=== PATIENT | male | born 1945 | race Caucasian/White ===

== ENCOUNTER → 2019-05-29 12:43 | Outpatient (BNVA) | payer OTHER, SELFPAY | PROVIDERS: Family Provider Family Medicine; PCP Family Medicine; Visit Provider Nurse Practitioner | DX: M54.2 Cervicalgia (principal); Z79.891 Long term (current) use of opiate analgesic | CPT/HCPCS: 99213 ==

== ENCOUNTER → 2019-09-25 12:49 | Outpatient (BNVA) | payer OTHER, SELFPAY | PROVIDERS: Family Provider Family Medicine; PCP Family Medicine; Visit Provider Anesthesiology | DX: M54.2 Cervicalgia (principal); Z95.810 Presence of automatic (implantable) cardiac defibrillator; Z79.891 Long term (current) use of opiate analgesic | CPT/HCPCS: 99213; 99214 ==

== ENCOUNTER → 2019-12-24 13:53 | Outpatient (BNVA) | payer OTHER, SELFPAY | PROVIDERS: Family Provider Family Medicine; PCP Family Medicine; Visit Provider Family Medicine | DX: Z11.59 Encounter for screening for other viral diseases (principal) | CPT/HCPCS: 87635 ==

== ENCOUNTER → 2020-01-13 10:08 | Outpatient (BNVA) | payer OTHER, SELFPAY | PROVIDERS: Family Provider Family Medicine; PCP Family Medicine; Visit Provider Anesthesiology | DX: M54.2 Cervicalgia (principal); M54.9 Dorsalgia, unspecified; Z95.810 Presence of automatic (implantable) cardiac defibrillator; Z79.891 Long term (current) use of opiate analgesic | CPT/HCPCS: 99213; 99214 ==

== ENCOUNTER → 2020-07-14 11:51 | Outpatient (BNVA) | payer OTHER, SELFPAY | PROVIDERS: Family Provider Family Medicine; PCP Family Medicine; Visit Provider Surgery | DX: Z20.822 Contact with and (suspected) exposure to COVID-19 (principal); Z85.038 Personal history of other malignant neoplasm of large intestine | CPT/HCPCS: 87635 ==

== ENCOUNTER 2020-07-20 08:07 | Day surgery (SDC) | payer OTHER, SELFPAY ==
[2020-07-18 09:37] VITALS: BMI 34.7
--- NOTE | 2020-07-20 08:29 | ANES.PREANE2 ---
Pre-Anesthetic Assessment Pre-Anesthetic Assessment: Height/Weight: Height 1.7 m Weight 100.698 kg Preop Diagnosis: Hx colon cancer Proposed Procedure: Operation Date: 07/20/20 10:00 Proposed Procedures p Colonoscopy 64928 z85.038(Not Applicable) - Ean Johnson MD Familial anesthetic complications: None Was Beta Beau taken within 24 hours: Yes Was Clonidine taken within 24 hours: N/A Last intake: > 8 hrs Social: Social History: No alcohol and No tobacco Exam: Pre-Anes Outpt Exam: alert, oriented x 3, clear to auscultation bilaterally and regular rate & rhythm Airway: Cervical ROM: WNL MP: 3 Dentition: False and Partials CV/HEM: CV/HEM: HTN and [place] Comments: Pacer/ICD in place - states it paces him. he is unable able to achieve > 4 METS, plays golf Metabolic: Metabolic: DM Anesthetic Plan: ASA status: 4 Anesthesia: MAC Risk of > 500 ml blood loss (7ml/kg in children): No PFSH Anesthesia PFSH: Medical History Encounter for long-term opiate analgesic use Neck pain Opioid contract exists Surgical History History of colon resection 6 INCHES REMOVED DUE TO CANCER Hx of Achilles tendon repair LEFT Family History Sister Cancer LEUKEMIA Father Heart disease Social History Smoking and tobacco status: former smoker Alcohol intake: current Alcohol intake frequency: holidays/special occasions only History of recent travel: No Data Anesthesia Cardiac Studies: No Data to Display
--- NOTE | 2020-07-20 08:53 | W.PM.OPSFHP ---
Same Day Surgery H&P Indication for Procedure/HPI DATE OF PROCEDURE: July 20, 2020 CHIEF COMPLAINT/INDICATIONFOR SURGICAL PROCEDURE: She of colon polyp PREOP DIAGNOSIS: History of colon cancer PLANNED PROCEDRUE: Operation Date: 07/20/20 10:00 Proposed Procedures p Colonoscopy 12463 z85.038(Not Applicable) - Ean Johnson MD This is a pleasant 75 years old gentleman gives history of 6 inches of partial colectomy that was done in [facility] about 6 years ago and patient reports that he had history of colon cancer but it is all taken out and he did not require further therapies like chemotherapy. Patient is referred to me for surveillance colonoscopy as he used to have 1 every 3 years per his description and he denies history of bleeding per rectum. No evidence of nonintentional weight loss. Unfortunately no available reports from outside facility about the actual procedure being done to the patient. Interim history 07/20/2020 Patient comes today for surveillance colonoscopy Medications/Allergies* Home Medications Medication Instructions Recorded Confirmed Type VITAMIN D3 25 mg PO BID 05/29/19 07/18/20 History aspirin 81 mg chewable tablet 81 mg PO DAILY 05/29/19 07/18/20 History atorvastatin 10 mg tablet 10 mg PO DAILY 05/29/19 07/18/20 History carvedilol 25 mg tablet 12.5 mg PO BID tab 05/29/19 07/18/20 History furosemide 20 mg tablet 60 mg PO DAILY tab 05/29/19 07/18/20 History gabapentin 300 mg capsule 900 mg PO TID cap 05/29/19 07/18/20 History glipizide 5 mg tablet 5 mg PO BID 05/29/19 07/18/20 History lisinopril 20 mg tablet 20 mg PO DAILY tab 05/29/19 07/18/20 History nitroglycerin 2.5 mg 2.5 mg PO BID 05/29/19 07/18/20 History capsule,extended release pentoxifylline 400 mg 400 mg PO BID 05/29/19 07/18/20 History tablet,extended release potassium chloride 20 mEq 20 meq PO DAILY 05/29/19 07/18/20 History tablet,extended release insulin glargine [Lantus U-100 58 unit SUBCUT BID 07/18/20 07/18/20 History Insulin] omega-3 fatty acids [Fish Oil] 1,500 mg PO DAILY 07/18/20 07/18/20 History Allergies/Adverse Reactions Allergy/AdvReac Type Severity Reaction Status Date / Time Iodinated Contrast Media Allergy RASH Verified 07/20/20 08:57 Pertinent History/Comorbid Conditions* Medical History (Updated 06/06/20 @ 16:02 by Ean Johnson MD) Encounter for long-term opiate analgesic use Neck pain Opioid contract exists Surgical History (Updated 05/29/19 @ 13:13 by SHIRLENE Hidalgo) History of colon resection 6 INCHES REMOVED DUE TO CANCER Hx of Achilles tendon repair LEFT Family History (Updated 05/29/19 @ 12:55 by RADHA Lerma) Heart disease Father Cancer Sister LEUKEMIA Social History Smoking and tobacco status: former smoker Alcohol intake: current Alcohol intake frequency: holidays/special occasions only History of recent travel: No Pertinent Exam Findings alert, clear to auscultation bilaterally, regular rate & rhythm and procedure specific exam findings (Lower midline scar otherwise nontender nondistended soft, obese) Recommendations Surgery/Procedure today (Colonoscopy with possible biopsy) Other Plans: Plan of care; After thorough history and physical examination and reviewing the chart, plan to perform surveillance colonoscopy. I discussed with the patient in details the risks,benefits,alternatives and indications.The risk of aspiration, bleeding, soft tissue injury, perforation of the colon and other potential concomitant complications were explained to the patient in details,also the potential need for Laproscoy/Laparotomy to repair any related complications including but not limited to colectomy and or Closotomy.The patient understood this well and did agree to proceed. Rationale was carefully and clearly discussed with the patient.Appropriate informed consent have been reviewed and signed All questions have been answered and all concerns have been addressed to patient's satisfaction. Verbal and written Instructions were given to the patient for colonoscopy prep Coding Level of Care Code Acute Molecular Biology Professor for Victorina Vital
[2020-07-20 09:03] VITALS: BP 142/57; PULSE 58; RESP 16; TEMP 36.6; O2SAT 99
[2020-07-20] MEDS: sodium chloride 0.9% 1,000 ML 30 ML IV (09:22)
[2020-07-20 09:31] LABS: Glucose Point of Care 102 mg/dL (70-110)
--- NOTE | 2020-07-20 10:35 | ANE.PACU2 ---
Inpatient post-anesthesia follow up: Airway intact: Yes Vital signs: Temperature 97.9 F Pulse Rate 58 Respiratory Rate 16 Blood Pressure 142/57 Pulse Oximetry 99 Oxygen Delivery Me thod Room Air Oxygen Flow Rate Fraction of Inspir ed Oxygen Hydration adequate: Yes Nausea and vomiting: No Pain level: 1 Mental status: Baseline
[2020-07-20 10:41] VITALS: BP 106/70; PULSE 71; RESP 18; TEMP 36.1; O2SAT 98
[2020-07-20 10:50] VITALS: BP 134/76; PULSE 57; RESP 18; O2SAT 97
--- NOTE | 2020-07-20 11:06 | PC.NURSE ---
Dr Johnson requested nursing to provide patient with hat and strainer to attempt to retrieve polyp. Pt was upset about Dr Johnson telling the patient he could not appreciate the anastomosis from previous surgery. Pt stated he would not be using the strainer and he would just forget about it. Items with placed in OZH bag and left unit with patient.
== END 2020-07-20 11:03 | disposition home or self-care (01) ==
PROVIDERS: PCP Family Medicine; Visit Provider Surgery
PROC: 0DJD8ZZ Inspection of Lower Intestinal Tract, Via Natural or Artificial Opening Endoscopic (ICD-10-PCS; CPT 45378; principal; 2020-07-20 10:00)
DX: Z12.11 Encounter for screening for malignant neoplasm of colon (principal); Z85.038 Personal history of other malignant neoplasm of large intestine; Z86.010 Personal history of colon polyps; Z87.891 Personal history of nicotine dependence; Z90.49 Acquired absence of other specified parts of digestive tract; D12.4 Benign neoplasm of descending colon; I10 Essential (primary) hypertension; I25.2 Old myocardial infarction; E11.9 Type 2 diabetes mellitus without complications
CPT/HCPCS: 36416; 45385; 82962; 88305; 96360; J2704; J7030

== ENCOUNTER → 2020-07-27 13:51 | Outpatient (BNVA) | payer OTHER, SELFPAY | PROVIDERS: PCP Family Medicine; Visit Provider Anesthesiology | DX: G89.29 Other chronic pain (principal); M54.9 Dorsalgia, unspecified; M54.2 Cervicalgia; Z79.891 Long term (current) use of opiate analgesic | CPT/HCPCS: 99214 ==

== ENCOUNTER → 2020-10-20 08:45 | Outpatient (BNVA) | payer OTHER, SELFPAY | PROVIDERS: PCP Family Medicine; Visit Provider Nurse Practitioner | DX: G89.29 Other chronic pain (principal); M54.2 Cervicalgia; M54.5 Low back pain; Z79.891 Long term (current) use of opiate analgesic; Z87.891 Personal history of nicotine dependence | CPT/HCPCS: 99212; 99213 ==

== ENCOUNTER 2020-12-13 08:03 | Outpatient (CLI) | payer OTHER, SELFPAY ==
[2020-12-13 08:44] VITALS: BMI 35.2
--- NOTE | 2020-12-13 08:59 | ECG_ITS ---
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 Interpretive Statements NAME OF STUDY: LEXISCAN SESTAMIBI STRESS TEST INDICATION: Chest pain, congestive heart failure PROCEDURE: At the baseline, the blood pressure was 157/76 mmHg, oxygen saturation 96% 157/76 mmHg, oxygen saturation 96% with a heart rate of 50 bpm. The electrocardiogram showed sinus bradycardia, limb lead reversal, extreme left axis deviation. Intraventricular conduction delay. The Lexiscan was infused over a period of 20 seconds. A total of 0.4 milligrams of Lexiscan was infused. The stress phase was continued for a total of 5 minutes. Heart rate at the end of the stress phase was 60 bpm, oxygen saturation 97% with a blood pressure of 133/69 mmHg. The EKG at the peak infusion revealed no significant ST-T wave changes. Isolated PVC noted during infusion. Sestamibi was injected 20 seconds after the Lexiscan infusion. Blood pressure at the end of the recovery phase was 136/68 mmHg, oxygen saturation 96% with a heart rate of 56 beats per minute. CONCLUSION: 1. Nondiagnostic EKG with LexiScan infusion given baseline intraventricular conduction delay (known left bundle branch block, lead reversal on stress EKG). 2. No LexiScan induced chest pain or cardiac arrhythmia. 3. Normal blood pressure and heart rate response. 4. Sestamibi/sestamibi perfusion scan pending; see separate report. Electronically Signed On 12-14-2020 17:15:30 CDT by Yolanda Alaniz M.D. [id number]
--- NOTE | 2020-12-13 09:00 | NMCV_ITS ---
NM eufemia perf SPECT r/s* [id number] Andre Olivas Age: 75 Gender: M : 1945 Exam Date: 12/13/2020 09:30 Ordering Phys: Yolanda Alaniz MD ([email or web address]) Technologist: PATRICIA Finn Exam Location: [facility] Indications: SHORTNESS OF BREATH, LBBB STRESS TEST Please see separate [facility] for full findings IMAGE PROTOCOL Rest/Stress 1 Lexiscan Day Radiopharmaceutical Dose (mCi) Administration Site Administered by Rest: Tc-99m 10.6 IV PATRICIA Finn Sestamibi Stress:Tc-99m 32.9 IV PATRICIA Finn Sestamibi Rest: 13-Dec-2020 60 Discovery 630 Stress: 13-Dec-2020 30 Discovery 630 0.4mg Lexiscan. Images obtained in supine and prone position. SPECT RESULTS Technical Quality: Excellent Raw Data Analysis: Normal Image Corrections: No attenuation or motion correction applied Summed Stress Score: 6 Summed Rest Score: 9 Summed Difference Score: 2 PERFUSION FINDINGS Medium sized perfusion abnormality of moderate severity of basal to mid inferolateral, mid anterolateral, apical lateral and apical inferior wall on rest images with subtle reversibility in basal anterolateral wall on supine stress images. There is somewhat improved tracer uptake in the lateral wall on prone stress images. FUNCTIONAL RESULTS (calculated via Gated SPECT) Stress Image LV EF (%): 54 Stress EDV (mL):140 TID: 0.83 Stress ESV (mL):65 FUNCTIONAL FINDINGS: The left ventricle is normal in size. Transient Ischemia Dilatation of 0.83. There is normal left ventricular systolic function. The left ventricular ejection fraction is normal with a value of 54%. There is normal left ventricular wall thickening. Abnormal septal motion. IMPRESSIONS 1. Medium sized perfusion abnormality of moderate severity of basal to mid inferolateral, mid anterolateral, apical lateral and apical inferior moran with subtle reversibility in basal anterolateral wall. 2. This may represent old myocardial infarction in circumflex and LAD artery territory with minimal angely-infarct ischemia or attenuation artifact (improved tracer uptake on prone images). 3. Overall left ventricular systolic function is normal without regional wall motion abnormalities. 4. No significant coronary ischemia based on the study. Yolanda Alaniz MD (Electronically Signed) Final Date: 15 December 2020 16:57 S
[2020-12-13] MEDS: regadenoson 0.4 Mg/5 ml Syringe IVP (10:09)
[2020-12-13 10:21] VITALS: BP 136/68; PULSE 58
== END 2020-12-13 08:04 | disposition home or self-care (01) ==
PROVIDERS: PCP Family Medicine; Visit Provider Internal Medicine Cardiovascular Disease
DX: R07.9 Chest pain, unspecified (principal); I50.9 Heart failure, unspecified; R06.02 Shortness of breath; I44.7 Left bundle-branch block, unspecified
CPT/HCPCS: 78452; 93017; A9500; J2785

== ENCOUNTER → 2021-01-27 08:29 | Outpatient (BNVA) | payer OTHER, SELFPAY | PROVIDERS: PCP Family Medicine; Visit Provider Anesthesiology | DX: G89.29 Other chronic pain (principal); M54.50 Low back pain, unspecified; M54.2 Cervicalgia; Z79.891 Long term (current) use of opiate analgesic; Z79.899 Other long term (current) drug therapy; Z87.891 Personal history of nicotine dependence | CPT/HCPCS: 99214 ==

== ENCOUNTER → 2021-04-21 10:43 | Outpatient (BNVA) | payer OTHER, SELFPAY | PROVIDERS: PCP Family Medicine; Visit Provider Anesthesiology | DX: G89.29 Other chronic pain (principal); M54.2 Cervicalgia; M54.50 Low back pain, unspecified; M19.90 Unspecified osteoarthritis, unspecified site; Z79.891 Long term (current) use of opiate analgesic | CPT/HCPCS: 99214 ==

== ENCOUNTER → 2021-05-26 10:38 | Outpatient (BNVA) | payer OTHER, SELFPAY | PROVIDERS: PCP Family Medicine; Visit Provider Internal Medicine Cardiovascular Disease | DX: Z95.0 Presence of cardiac pacemaker (principal) ==

== ENCOUNTER → 2021-08-25 10:30 | Outpatient (BNVA) | payer OTHER, SELFPAY | PROVIDERS: PCP Family Medicine; Visit Provider Internal Medicine Cardiovascular Disease | DX: Z45.02 Encounter for adjustment and management of automatic implantable cardiac defibrillator (principal) | CPT/HCPCS: 93284 ==

== ENCOUNTER → 2021-11-24 10:41 | Outpatient (BNVA) | payer OTHER, SELFPAY | PROVIDERS: PCP Family Medicine; Visit Provider Internal Medicine Cardiovascular Disease | DX: I11.0 Hypertensive heart disease with heart failure (principal); I50.42 Chronic combined systolic (congestive) and diastolic (congestive) heart failure; I25.10 Atherosclerotic heart disease of native coronary artery without angina pectoris; Z95.810 Presence of automatic (implantable) cardiac defibrillator; I73.9 Peripheral vascular disease, unspecified; Z87.891 Personal history of nicotine dependence | CPT/HCPCS: 93284; 99214 ==

== ENCOUNTER → 2022-03-16 09:53 | Outpatient (BNVA) | payer OTHER, SELFPAY | PROVIDERS: PCP Family Medicine; Visit Provider Internal Medicine Cardiovascular Disease | DX: Z45.02 Encounter for adjustment and management of automatic implantable cardiac defibrillator (principal) | CPT/HCPCS: 93284 ==

== ENCOUNTER → 2022-04-25 13:51 | Outpatient (BNVA) | payer OTHER, SELFPAY | PROVIDERS: PCP Family Medicine; Visit Provider Internal Medicine Cardiovascular Disease | DX: I11.0 Hypertensive heart disease with heart failure (principal); I50.42 Chronic combined systolic (congestive) and diastolic (congestive) heart failure; I25.10 Atherosclerotic heart disease of native coronary artery without angina pectoris; Z95.810 Presence of automatic (implantable) cardiac defibrillator; E78.5 Hyperlipidemia, unspecified; E11.9 Type 2 diabetes mellitus without complications; Z79.4 Long term (current) use of insulin; I73.9 Peripheral vascular disease, unspecified; Z87.891 Personal history of nicotine dependence | CPT/HCPCS: 99214; Q3014 ==

== ENCOUNTER → 2022-05-10 08:44 | Outpatient (BNVA) | payer OTHER, SELFPAY | PROVIDERS: PCP Family Medicine; Visit Provider Thoracic Surgery (Cardiothoracic Vascular Surgery) | DX: I65.21 Occlusion and stenosis of right carotid artery (principal); Z87.891 Personal history of nicotine dependence; I11.0 Hypertensive heart disease with heart failure; I50.9 Heart failure, unspecified; Z79.82 Long term (current) use of aspirin | CPT/HCPCS: 99203 ==

== ENCOUNTER → 2022-05-21 11:26 | Outpatient (BNVA) | payer OTHER, SELFPAY | PROVIDERS: PCP Family Medicine; Visit Provider Podiatrist Foot & Ankle Surgery | DX: I73.9 Peripheral vascular disease, unspecified (principal); B35.1 Tinea unguium; G62.9 Polyneuropathy, unspecified; E11.21 Type 2 diabetes mellitus with diabetic nephropathy; Z79.4 Long term (current) use of insulin | CPT/HCPCS: 11721; 99204 ==

== ENCOUNTER 2022-06-28 09:53 | Outpatient (CLI) | payer OTHER, SELFPAY ==
--- NOTE | 2022-06-28 10:00 | USCV_ITS ---
Andre Olivas Age: 77 Gender: M : 1945 Exam Date: 06/28/2022 10:19 Ordering Phys: René Spear MD (Andy) ([email or web address][place] [place] Technologist: RICARDO Exam Location: [facility] [place] Indication: KNOWN RIGHT ICA STENOSIS Risk Factors: Previous Vascular Surgery: Right Brachial BP: / Left Brachial BP: / Right Left Velocity (cm/s) Spectral Plaque Velocity (cm/s) Spectral Plaque Syst/Diast Broadening Syst/Diast Broadening 90.50/ 14.60 Prox CCA 121.70/ 23.30 100.30/19.80 Mid CCA 106.00/ 23.10 84.90/ 22.10 Distal CCA 99.10 / 25.60 475.40/167.80 Prox ICA 70.00 / 22.70 116.90/28.80 Mid ICA 73.30 / 30.90 41.30/ 17.20 Distal ICA 73.00 / 25.00 136.70 ECA 111.70 4.74 ICA/CCA 0.60 Antegrade Vertebral Antegrade 32.20/ 9.90 cm/s 36.50/ 12.40 cm/s Tri Subclavian Tri 97.00 149.0 0 FINDINGS Comparison: none available. Severe obstructive lesions noted in the right internal carotid artery with marked elevation of systolic and diastolic velociity. Mixed plaque in the right ICA. Antegrade vertebral arteries. CONCLUSIONS Right ICA stenosis 70-99%. Left ICA stenosis < 50%. Dr. Chelo Sabillon DO (Electronically Signed) Final Date: 28 June 2022 12:37 S
== END 2022-06-28 09:54 | disposition home or self-care (01) ==
PROVIDERS: PCP Family Medicine; Visit Provider Thoracic Surgery (Cardiothoracic Vascular Surgery)
DX: I65.23 Occlusion and stenosis of bilateral carotid arteries (principal)
CPT/HCPCS: 93880

== ENCOUNTER 2022-08-02 13:47 | Outpatient (CLI) | payer OTHER, SELFPAY ==
--- NOTE | 2022-08-02 14:30 | CT_ITS ---
WS: [id number] CT NECK WITHOUT CONTRAST HISTORY: History of carotid stenosis. Allergy to IV contrast. Evaluate extent of calcified plaque in the carotid arteries. TECHNIQUE: Contiguous 2 mm axial images are performed through the neck without intravenous contrast. Sagittal and coronal reformats are also submitted. All CT scans at [facility] use at least on e of these dose optimization techniques: automated exposure control; mA and/or kV adjustment per yuan ent size (includes targeted exams where dose is matched to clinical indication); or iterative reconst ruction. CONTRAST: CONTRAST: None DLP: 310.45 mGy.cm COMPARISON: Carotid ultrasound 06/28/2022 Examination performed to evaluate the extent of calcified plaque in the carotid arteries. RIGHT carotid artery: Mildly tortuous proximal common carotid artery. Calcified plaque is focal to th e bifurcation and this corresponds to the ultrasound findings also. Plaque extends over a length of 1 2 mm in the proximal RIGHT ICA. The soft plaque seen by carotid ultrasound is not evident by this exa mination. No significant amount of plaque extends into the external carotid artery. LEFT carotid artery: Normal appearance of the proximal cervical carotid artery. There is a very small amount of plaque at the bifurcation. No external carotid artery stenosis. Calcified plaque is heavy in the distal LEFT vertebral artery beginning at the foramen magnum and ext ending towards the basilar artery. Intracranial calcified plaque the cavernous carotid arteries. Soft tissues of the neck are negative. No obstruction of the airway. No mass. Orbits and globes are n egative. Normal appearance of the thyroid. Straightening of the normal cervical lordosis. Advanced degenerative disc disease at C5-6. CT/CT neck wo con [id number] IMPRESSION: 1. Focal calcified plaque at the RIGHT cervical carotid bifurcation extends ov er a length of 12 mm. This corresponds in extent of the calcified plaque seen o n the carotid ultrasound. The soft plaque visualized by ultrasound also at the bifurcation is not evident by CT. 2. Very minimal calcification at the LEFT cervical carotid bifurcation. Notified René Spear MD at 08/02/2022 3:13 PM.
== END 2022-08-02 13:48 | disposition home or self-care (01) ==
PROVIDERS: PCP Family Medicine; Visit Provider Thoracic Surgery (Cardiothoracic Vascular Surgery)
DX: I65.23 Occlusion and stenosis of bilateral carotid arteries (principal)
CPT/HCPCS: 70490

== ENCOUNTER → 2022-08-13 13:38 | Outpatient (BNVA) | payer OTHER, SELFPAY | PROVIDERS: PCP Family Medicine; Visit Provider Podiatrist Foot & Ankle Surgery | DX: I73.9 Peripheral vascular disease, unspecified (principal); B35.1 Tinea unguium; G62.9 Polyneuropathy, unspecified; E11.42 Type 2 diabetes mellitus with diabetic polyneuropathy; Z79.4 Long term (current) use of insulin | CPT/HCPCS: 11721 ==

== ENCOUNTER → 2022-08-16 10:41 | Outpatient (BNVA) | payer OTHER, SELFPAY | PROVIDERS: PCP Family Medicine; Visit Provider Thoracic Surgery (Cardiothoracic Vascular Surgery) | DX: I65.21 Occlusion and stenosis of right carotid artery (principal) | CPT/HCPCS: 99213 ==

== ENCOUNTER → 2022-10-22 10:05 | Outpatient (BNVA) | payer OTHER, SELFPAY | PROVIDERS: PCP Family Medicine; Visit Provider Podiatrist Foot & Ankle Surgery | DX: I73.9 Peripheral vascular disease, unspecified (principal); B35.1 Tinea unguium; G62.9 Polyneuropathy, unspecified; E11.42 Type 2 diabetes mellitus with diabetic polyneuropathy; Z79.4 Long term (current) use of insulin | CPT/HCPCS: 11721 ==

== ENCOUNTER → 2022-11-02 08:23 | Outpatient (BNVA) | payer OTHER, SELFPAY | PROVIDERS: PCP Family Medicine; Visit Provider Internal Medicine Cardiovascular Disease | DX: I11.0 Hypertensive heart disease with heart failure (principal); I50.42 Chronic combined systolic (congestive) and diastolic (congestive) heart failure; I25.10 Atherosclerotic heart disease of native coronary artery without angina pectoris; Z95.810 Presence of automatic (implantable) cardiac defibrillator; E78.5 Hyperlipidemia, unspecified; E11.9 Type 2 diabetes mellitus without complications; I73.9 Peripheral vascular disease, unspecified; Z87.891 Personal history of nicotine dependence; Z79.4 Long term (current) use of insulin | CPT/HCPCS: 99214 ==

== ENCOUNTER → 2023-01-04 08:24 | Outpatient (BNVA) | payer OTHER, SELFPAY | PROVIDERS: PCP Family Medicine; Visit Provider Podiatrist Foot & Ankle Surgery | DX: B35.1 Tinea unguium (principal); I73.9 Peripheral vascular disease, unspecified; G62.9 Polyneuropathy, unspecified; E11.42 Type 2 diabetes mellitus with diabetic polyneuropathy; Z79.4 Long term (current) use of insulin | CPT/HCPCS: 11721 ==

== ENCOUNTER 2023-01-18 13:36 | Outpatient (CLI) | payer OTHER, SELFPAY ==
--- NOTE | 2023-01-18 14:00 | USCV_ITS ---
Andre Olivas Age: 77 Gender: M : 1945 Exam Date: 01/18/2023 13:47 Ordering Phys: René Spear MD (Andy) ([email or web address]/[facility] [place]) Technologist: CT Exam Location: [facility] [place] Indication: Risk Factors: Previous Vascular Surgery: Right Brachial BP: / Left Brachial BP: / Right Left Velocity (cm/s) Spectral Plaque Velocity (cm/s) Spectral Plaque Syst/Diast Broadening Syst/Diast Broadening 87.20/ 15.00 Prox CCA 87.20 / 19.30 80.70/ 14.10 Mid CCA 96.70 / 23.00 82.20/ 15.60 Distal CCA 90.00 / 21.50 444.90/183.00 Prox ICA 76.70 / 22.50 122.60/45.20 Mid ICA 80.40 / 29.20 49.70/ 15.50 Distal ICA 80.90 / 25.00 159.90 ECA 86.90 5.10 ICA/CCA 0.84 Antegrade Vertebral Antegrade 29.70/ 9.70 cm/s 58.30/ 14.00 cm/s Tri Subclavian Tri 103.8 142.9 0 0 FINDINGS comparison 07/01 CONCLUSIONS Severe Right ICA stenosis 70-99%. Severe atheromatous plaque right carotid bulb/ICA. Recommend further evaluation CTA. Velocities are stable since previous 07/01 Left ICA stenosis <50%. Mild atheromatous plaque left carotid bulb/ICA. Normal antegrade Doppler flow noted in the right vertebral artery. Normal antegrade Doppler flow noted in the left vertebral artery. Osbaldo Basurto MD (Electronically Signed) Final Date: 21 January 2023 08:33 S
== END 2023-01-18 13:37 | disposition home or self-care (01) ==
LOC: RAD 13:36
PROVIDERS: PCP Family Medicine; Visit Provider Thoracic Surgery (Cardiothoracic Vascular Surgery)
DX: I65.23 Occlusion and stenosis of bilateral carotid arteries (principal)
CPT/HCPCS: 93880

== ENCOUNTER → 2023-01-24 14:42 | Outpatient (BNVA) | payer OTHER, SELFPAY | PROVIDERS: PCP Family Medicine; Visit Provider Thoracic Surgery (Cardiothoracic Vascular Surgery) | DX: I65.21 Occlusion and stenosis of right carotid artery (principal); I11.0 Hypertensive heart disease with heart failure; I50.9 Heart failure, unspecified; Z87.891 Personal history of nicotine dependence | CPT/HCPCS: 99213 ==

== ENCOUNTER → 2023-03-18 08:38 | Outpatient (BNVA) | payer OTHER, SELFPAY | PROVIDERS: PCP Family Medicine; Visit Provider Podiatrist Foot & Ankle Surgery | DX: B35.1 Tinea unguium (principal); I73.9 Peripheral vascular disease, unspecified; G62.9 Polyneuropathy, unspecified; E11.42 Type 2 diabetes mellitus with diabetic polyneuropathy; Z79.4 Long term (current) use of insulin | CPT/HCPCS: 11721 ==

== ENCOUNTER → 2023-05-01 09:25 | Outpatient (BNVA) | payer OTHER, SELFPAY | PROVIDERS: PCP Family Medicine; Visit Provider Nurse Practitioner Family | DX: Z95.810 Presence of automatic (implantable) cardiac defibrillator (principal); Z87.891 Personal history of nicotine dependence; I11.0 Hypertensive heart disease with heart failure; I50.9 Heart failure, unspecified | CPT/HCPCS: 99214 ==

== ENCOUNTER → 2023-06-10 10:38 | Outpatient (BNVA) | payer OTHER, SELFPAY | PROVIDERS: PCP Family Medicine; Visit Provider Podiatrist Foot & Ankle Surgery | DX: B35.1 Tinea unguium (principal); I73.9 Peripheral vascular disease, unspecified; G62.9 Polyneuropathy, unspecified; E11.42 Type 2 diabetes mellitus with diabetic polyneuropathy; Z79.4 Long term (current) use of insulin | CPT/HCPCS: 11721 ==

== ENCOUNTER 2023-06-25 11:15 | Outpatient (CLI) | payer OTHER, SELFPAY ==
--- NOTE | 2023-06-25 11:15 | USCV_ITS ---
Andre Olivas Age: 78 Gender: M : 1945 Exam Date: 06/25/2023 11:37 Ordering Phys: René Spear MD (Andy) [email or web address] [place] Technologist: RICARDO Exam Location: [facility] [place] Indication: EVAL FOR CAROTID STENOSIS Risk Factors: Previous Vascular Surgery: Right Brachial BP: / Left Brachial BP: / Right Left Velocity (cm/s) Spectral Plaque Velocity (cm/s) Spectral Plaque Syst/Diast Broadening Syst/Diast Broadening 88.00/ 11.30 Prox CCA 91.40 / 22.40 84.30/ 13.10 Mid CCA 92.90 / 19.90 78.90/ 15.00 Distal CCA 92.20 / 15.50 297.40/129.10 Prox ICA 57.90 / 16.80 74.10/ 30.50 Mid ICA 89.10 / 41.30 44.90/ 11.40 Distal ICA 45.50 / 16.50 120.80 ECA 71.00 3.80 ICA/CCA 1.00 Antegrade Vertebral Antegrade 22.30/ 5.00 cm/s 60.00/ 16.50 cm/s Tri Subclavian Tri 87.80 127.2 0 CONCLUSIONS Right ICA stenosis 70-99%. Recommend CTA. Moderate atheromatous plaque right carotid bulb/ICA. Velocities decreased compared to previous 01/31 left ICA stenosis <50%. Normal antegrade Doppler flow noted in the right vertebral artery. Normal antegrade Doppler flow noted in the left vertebral artery. Osbaldo Basurto MD (Electronically Signed) Final Date: 25 June 2023 16:30 S
== END 2023-06-25 11:16 | disposition home or self-care (01) ==
LOC: RAD 11:15
PROVIDERS: PCP Family Medicine; Visit Provider Thoracic Surgery (Cardiothoracic Vascular Surgery)
DX: I65.23 Occlusion and stenosis of bilateral carotid arteries (principal)
CPT/HCPCS: 93880

== ENCOUNTER → 2023-06-26 15:05 | Outpatient (BNVA) | payer OTHER, SELFPAY | PROVIDERS: PCP Family Medicine; Visit Provider Internal Medicine Cardiovascular Disease | DX: I11.0 Hypertensive heart disease with heart failure (principal); I50.42 Chronic combined systolic (congestive) and diastolic (congestive) heart failure; Z95.810 Presence of automatic (implantable) cardiac defibrillator; E78.5 Hyperlipidemia, unspecified; I73.9 Peripheral vascular disease, unspecified; I65.21 Occlusion and stenosis of right carotid artery; Z87.891 Personal history of nicotine dependence | CPT/HCPCS: 99215 ==

== ENCOUNTER 2023-07-12 10:51 | Outpatient (CLI) | payer OTHER, SELFPAY ==
[2023-07-12 11:22] LABS: Basophils # 0.1 10^3/uL (0.0-0.1); Basophils % 0.6 %; Eosinophils # 0.3 10^3/uL (0.0-0.8); Eosinophils % 3.2 %; Hematocrit 43.2 % (37-53); Lymphocytes # 1.8 10^3/uL (0.8-4.8); Lymphocytes % 17.7 %; Mean Corpuscular HGB Conc 33.1 g/dL (30-55); Mean Corpuscular Hemoglobin 29.7 pg (27-33); Mean Corpuscular Volume 89.6 fl (82-101); Mean Platelet Volume 11.1 fL (7.4-10.4); Monocytes # 0.5 10^3/uL (0.2-0.9); Monocytes % 5.4 %; Neutrophils % 72.8 %; Nucleated Red Blood Cells % 0 %; Platelet Count 144 10^3/cmm (157-399); Red Blood Count 4.82 10^6/uL (3.85-5.65); Red Cell Distribution Width 13.7 % (12.1-15.1); White Blood Count 10.03 10^3/uL (3.29-11.43)
[2023-07-12 11:27] VITALS: BP 150/84; PULSE 66; RESP 18; TEMP 36.6; O2SAT 97; BMI 34.1
[2023-07-12 11:40] LABS: Anion Gap 15.3 (5-19); Blood Urea Nitrogen 15 mg/dL (8-23); Calcium 9.5 mg/dL (8.5-10.5); Carbon Dioxide 26 mmol/L (22-29); Chloride 103 mmol/L (98-107); Creatinine Clr Calc Pharmacy 63.0105; Glucose 189 mg/dL (65-115); Osmolality Calculated 296 mOsm/kg (285-295); Potassium 4.3 mmol/L (3.5-5.1); Sodium 140 mmol/L (136-145)
--- NOTE | 2023-07-12 12:50 | W.PM.OPSUD ---
Surgery/Procedure H&P Update DATE OF PROCEDURE: July 12, 2023 DATE H&P PERFORMED: 06/26/23 H&P UPDATE INFORMATION: I have reviewed H&P completed within last 30 days, I have examined patient prior to procedure and No changes to prior documentation PREOP DIAGNOSIS: PHYSICAL CHEMIST-D ALISHA PRIMARY INDICATION FOR PROCEDURE: Cardiomyopathy/symptomatic bradycardia/ALISHA of the PHYSICAL CHEMIST-D PLANNED PROCEDURE: Operation Date: 07/12/23 12:00 Proposed Procedures p ICD Generator Exchange/Change Implantable Cardioverter Defibrillator Generator Change 82941, I50.42(Not Applicable) - Keila Cantor MD PATIENT REASSESSED PRIOR TO SEDATION, WITH NO CHANGE NOTED: Yes PHYSICAL EXAM: alert, oriented x 3, clear to auscultation bilaterally and regular rate & rhythm AIRWAY EVAL/ANESTHESIA PLAN: normal airway, see other exam findings, ASA III, Monitored Anesthesia, Local Anesthesia, Risks, benefits & alternatives of sedation and/or procedure discussed and Patient agrees to continue as planned
--- NOTE | 2023-07-12 14:12 | P.OP_ITS ---
Operative Report Date of procedure: July 12, 2023 Surgeon: Keila Cantor MD Procedure: My PROCEDURE: ICD REVISION PREOPERATIVE DIAGNOSIS: ICD elective replacement indication. POSTOPERATIVE DIAGNOSIS: ICD elective replacement indication. ESTIMATED BLOOD LOSS: Less than 5cc COMPLICATIONS: None. BRIEF HISTORY: The patient is 78-year-old white male who had a LIMOUSINE DRIVER-D implantation for recurrent heart failure /primary prophylaxis. The patient was found to have elective replacement indication, during routine office followup evaluation. For further management of patient's condition and for the symptomatic bradycardia, the patient required an LIMOUSINE DRIVER-D revision. Patient has a history of ischemic cardiomyopathy/congestive heart failure/bradycardia. The procedure was explained to the patient and his in detail with the risks and benefits. The risks of bleeding, hematoma, vascular injury, infection and other concomitant complications were explained in detail, which the patient understood well and consented to proceed. PROCEDURES PERFORMED: 1. Explantation of the old LIMOUSINE DRIVER-D device . 2. Implantation of the new LIMOUSINE DRIVER-D device The patient brought to the Cardiac Research Hydraulic Engineer. The left side of the neck and the subclavian area were cleaned and draped in a sterile fashion. 1% Xylocaine was used for local anesthetic agent. A 2.5 inch long incision was made just below the previous pacemaker scar. By sharp and blunt dissection, the LIMOUSINE DRIVER-D pocket was accessed. The old generator was delivered from the pocket. The generator was detached from the lead s. The new generator was attached to the lead. The LIMOUSINE DRIVER-D pocket was copiously irrigated with vancomycin solution. Complete hemostasis was achieved. The leads were positioned behind the generator and the generator was attached to the pectoralis fascia by suturing with 0 Surgilon. Sponge counts were confirmed. The LIMOUSINE DRIVER-D pocket was closed in layers. Skin was approximated using 4-0 Vicryl. EXPLANTED DEVICE: Explanted generator Date of implant 03/14/2015 Brand:VIVA LIMOUSINE DRIVER-D. Model number:. Serial number: [id number] IMPLANTED DEVICES: Ventricular Lead: Date of implantation: 03/14/1959 Model number: [id number] Serial number: [id number] Make: Medtronic. Atrial Lead Date of implantation 03/14/2015 Model number 5076 Serial number [id number] Make: Medtronic Left ventricular lead Date of implantation: 03/14/2015 Model number: [id number] Serial number: [id number] Make: Medtronic Implanted Generator: Date of implantation 07/12/2019 Brand: [place] HF Quad LIMOUSINE DRIVER-D MRI SenseLogixRich. Model number: [id number] Serial number: [id number] Stimulation Threshold: Through the Device--the ventricular sensing was 6.1 millivolts. Lead 470 and the pacing threshold was 0.75 volts at 0.4 milliseconds. The atrial sensing was 3 point millivolts. The lead impedance was 437 ohms and the pacing threshold was 0.5 volts at 0.4 ms. The HV lead impedance was 81 ohms. LV lead impedance was 1026 ohms, capture threshold of 1.75 V at a pulse width of 1.0 ms The pacemaker was set for DDD mode with an upper rate of 120 and a lower rate of 50. The DFT testing was not done Ventricular tachycardia detection rate was set at 250 bpm The ventricular fibrillation detection rate was set at 182 bpm A pressure dressing was applied over the ICD site. The patient was transferred back to medical floor in stable condition.
[2023-07-12 14:54] VITALS: BMI 34.0
--- NOTE | 2023-07-12 16:15 | PC.NURSE ---
This nurse contacted Dr. Cantor about patients home medications. Patient brought in medications in a daily pill enterprise resource planner and not in the prescription container. This nurse went to go over medications with patient and patient informed nurse that he had taken his lunch time dose of gabapentin and his 60 units of insulin. Patient wanted to take home medications. Patient is alert and oriented. This nurse went over medications patient had in his daily enterprise resource planner for this evening. Patient had 3 gabapentin capsules that equal 900 mg (patient is ordered gabapentin 900 mg PO TID [facility]), one nitroglycerin 2.5 mg capsule (patient is ordered nitroglycerin 2.5 mg PO BID [facility]), one pentoxifylline 400 mg pill (patient is ordered pentoxifylline 400 mg PO BID [facility]), a half of a carvedilol pill which equals 12.5 mg (patient is ordered carvedilol 12.5 PO BID ALFRED). Pt also has 40 units of lantus that he brought from home. Dr. Cantor verbally okayed patient taking those home medications. This nurse explained to patient that we could give meds via our pyxis but patient was adamant about taking his own meds.
[2023-07-12 16:38] VITALS: BP 132/73; PULSE 56; RESP 16; TEMP 36.6; O2SAT 97
[2023-07-12] MEDS: ceFAZolin 2,000 MG in sodium chloride 0.9% (plus) 50 ML 100 MG IV (19:34)
[2023-07-12 20:00] VITALS: BP 148/75; PULSE 68; RESP 17; TEMP 36.4; O2SAT 96
[2023-07-12 22:14] VITALS: PULSE 82
[2023-07-12 23:59] VITALS: BP 127/86; PULSE 79; RESP 17; TEMP 36.8; O2SAT 96
[2023-07-13] MEDS: ceFAZolin 2,000 MG in sodium chloride 0.9% (plus) 50 ML 100 MG IV (04:14)
[2023-07-13 04:36] VITALS: BP 125/69; PULSE 68; RESP 17; TEMP 36.8; O2SAT 97
[2023-07-13 05:38] VITALS: PULSE 68
--- NOTE | 2023-07-13 06:07 | ECG_ITS ---
[facility] Test Date: 2023-07-13 Pat Name: Andre Olivas Department: Room: 260 Gender: Male Bank President: : 1945 Requested By: Keila Cantor Order Number: [id number] Lizette MD: Kg Motta M.D. Measurements Intervals [place] Rate: 68 P: 47 RI: 140 QRS: 230 QRSD: 189 T: 44 QT: 458 QTc: 488 Interpretive Statements ELECTRONIC VENTRICULAR PACEMAKER Compared to ECG 03/08/2015 14:40:16 Sinus rhythm no longer present First degree AV block no longer present Left bundle-branch block no longer present Electronically Signed On 07-14-2023 12:45:59 CDT by Kg Motta M.D. [email or web address]en[facility].[email or web address]/[id number]
[2023-07-13 08:00] VITALS: BP 146/79; PULSE 70; RESP 16; TEMP 37; O2SAT 97
--- NOTE | 2023-07-13 09:57 | PM.DCS ---
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 Hospital Course Hospital Course Had successful procedure with generator change out. Was observed overnight and stayed stable. No hematoma noted at procedure site. Patient discharged home in a stable condition with close follow-up with cardiology office. Physical Exam Narrative: GENERAL: Patient is alert, awake and oriented x3. [] NECK: No jugular vein distension. [] HEENT: No cyanosis. No icterus. No pallor. [] HEART: Regular S1 and S2. No murmur, rub or gallop. [] LUNGS: Clear to auscultate bilaterally. [] CENTRAL NERVOUS SYSTEM: Grossly nonfocal. [] EXTREMITIES: Lower extremities with 1+ edema bilaterally. Discharge Data Studies Completed and Pending Completed Studies During Hospitalization Category Date Time Status [employer] request for service Routine Exams 07/12/23 12:00 Completed Pending at discharge Category Date Time Status Prothrombin Time INR Stat Lab 07/12/23 11:00 Ordered Laboratory Results WBC 10.03 10^3/uL (3.29-11.43) 07/12/23 Unknown RBC 4.82 10^6/uL (3.85-5.65) 07/12/23 Unknown Hgb 14.30 g/dL (11.27-16.99) 07/12/23 Unknown Hct 43.2 % (37-53) 07/12/23 Unknown MCV 89.6 fl (82-101) 07/12/23 Unknown MCH 29.7 pg (27-33) 07/12/23 Unknown MCHC 33.1 g/dL (30-55) 07/12/23 Unknown RDW 13.7 % (12.1-15.1) 07/12/23 Unknown Plt Count 144 10^3/cmm (157-399) L 07/12/23 Unknown MPV 11.1 fL (7.4-10.4) H 07/12/23 Unknown Neut % (Auto) 72.8 % 07/12/23 Unknown Lymph % (Auto) 17.7 % 07/12/23 Unknown Amelia % (Auto) 5.4 % 07/12/23 Unknown Eos % (Auto) 3.2 % 07/12/23 Unknown Baso % (Auto) 0.6 % 07/12/23 Unknown Neut # (Auto) 7.30 10^3/uL (1.8-7.7) 07/12/23 Unknown Lymph # (Auto) 1.8 10^3/uL (0.8-4.8) 07/12/23 Unknown Amelia # (Auto) 0.5 10^3/uL (0.2-0.9) 07/12/23 Unknown Eos # (Auto) 0.3 10^3/uL (0.0-0.8) 07/12/23 Unknown Baso # (Auto) 0.1 10^3/uL (0.0-0.1) 07/12/23 Unknown Nucleated RBC % (auto) 0 % 07/12/23 Unknown Nucleated RBCs # 0.0 /100WBC 07/12/23 Unknown Sodium 140 mmol/L (136-145) 07/12/23 Unknown Potassium 4.3 mmol/L (3.5-5.1) 07/12/23 Unknown Chloride 103 mmol/L (98-107) 07/12/23 Unknown Carbon Dioxide 26 mmol/L (22-29) 07/12/23 Unknown Anion Gap 15.3 (5-19) 07/12/23 Unknown BUN 15 mg/dL (8-23) 07/12/23 Unknown Creatinine 1.1 mg/dL (0.7-1.2) 07/12/23 Unknown GFR Calculation Not Reportable 07/12/23 Unknown Glucose 189 mg/dL (65-115) H 07/12/23 Unknown Calculated Osmolality 296 mOsm/kg (285-295) H 07/12/23 Unknown Calcium 9.5 mg/dL (8.5-10.5) 07/12/23 Unknown Vitals Last Vital Signs Temp 98.6 F 07/13/23 08:00 Pulse 70 07/13/23 08:00 Resp 16 07/13/23 08:00 BP 146/79 07/13/23 08:00 Pulse Ox 97 07/13/23 08:00 O2 Del Method Room Air 07/13/23 04:36 Discharge Plan Discharge Patient Disposition: Home Prescriptions: Continued nitroglycerin 2.5 mg capsule, extended release 2.5 mg PO BID potassium chloride 20 mEq tablet extended release 20 meq PO DAILY furosemide [Lasix] 20 mg tablet 60 mg PO DAILY gabapentin 300 mg capsule 900 mg PO TID carvedilol 25 mg tablet 12.5 mg PO BID pentoxifylline 400 mg tablet extended release 400 mg PO BID lisinopril 20 mg tablet 10 mg PO DAILY aspirin 81 mg tablet,delayed release (DR/EC) 81 mg PO DAILY atorvastatin 40 mg tablet 40 mg PO DAILY cholecalciferol (vitamin D3) 25 mcg (1,000 unit) capsule 25 mcg PO DAILY fluoride (sodium) 1.1 % cream 1 applic dental DAILY PRN (Reason: Pain) multivitamin Tablet 1 tab PO DAILY Ozempic 0.25 mg or 0.5 mg(2 mg/1.5 mL) pen injector 0.5 mg SUBCUT .weekly (DME) Diabetic shoes See Rx Instructions .Route .MEDSUPPLY Qty: 1 0RF Rx Instructions: As directed by the shoe annamaria No Action Lantus U-100 Insulin 100 unit/mL solution 60 unit SUBCUT DIRECTED Rx Instructions: 60 units in AM and 60 units in PM Discharge Orders: Discharge Order (Routine); Ordered 07/13/23 Ordered By: Kg Motta Referrals: Joy Ramos MD [Primary Care Provider] - (We have notified your physician's clinic of the need for a follow-up appointment to be scheduled. If you have not heard from them within the next 2 business days, please call them directly. ) Johanna Scott FNP [Nurse Practitioner] - 4-7 days (We have notified your physician's clinic of the need for a follow-up appointment to be scheduled. If you have not heard from them within the next 2 business days, please call them directly. ) Diet: Cardiac Patient Instructions: Multivitamins, Adult Formula (By mouth), Pacemaker Generator Change (DC), Opioid Safety Activity Restrictions/Additional Instructions: Patient to minimize the movements of the left shoulder to 45 degrees. Avoid any weightbearing on the left elbow for the next 10 days. Take the antibiotics as and multivitamins prescribed. Keep the pacemaker site clean and dry. Appointment at the [facility], to be seen with nurse practitioner in 1 week to check the wound and pacemaker. Also arrange for the pacemaker follow-up Discharge Date/Time: 07/13/23 12:20 Discharge Attestations Time Spent in Discharge Care*: less than 30 min Quality Metrics Clinical Quality Measures [ No reported AMI, CVA or VTE this stay] Coding Level of Care Code Acute Code for Chg Zahraa
--- NOTE | 2023-07-13 11:04 | PC.NURSE ---
Medications were called into [facility] here in [place] at patient's request as his pharmacy [facility] will be closed at discharge.
== END 2023-07-13 12:20 | disposition home or self-care (01) ==
LOC: CCL 10:53 → MEDSURG 14:50
PROVIDERS: PCP Family Medicine; Visit Provider Internal Medicine Cardiovascular Disease
PROC: 0JPT0PZ Removal of Cardiac Rhythm Related Device from Trunk Subcutaneous Tissue and Fascia, Open Approach (ICD-10-PCS; principal; 2023-07-12 12:00)
DX: Z45.02 Encounter for adjustment and management of automatic implantable cardiac defibrillator (principal); I11.0 Hypertensive heart disease with heart failure; I50.42 Chronic combined systolic (congestive) and diastolic (congestive) heart failure; E78.5 Hyperlipidemia, unspecified; I73.9 Peripheral vascular disease, unspecified; I65.21 Occlusion and stenosis of right carotid artery; Z79.82 Long term (current) use of aspirin; E11.9 Type 2 diabetes mellitus without complications; Z79.891 Long term (current) use of opiate analgesic; Z87.891 Personal history of nicotine dependence; I25.5 Ischemic cardiomyopathy
CPT/HCPCS: 33264; 36415; 80048; 85025; 93005; 96374; 96375; 97165; 99152; 99153; A4216; A4565; C1769; C1882; J0690; J2250; J3010; J3370; J7030; J7050

== ENCOUNTER → 2023-07-22 14:11 | Outpatient (BNVA) | payer OTHER, SELFPAY | PROVIDERS: PCP Family Medicine; Visit Provider Thoracic Surgery (Cardiothoracic Vascular Surgery) | DX: I65.21 Occlusion and stenosis of right carotid artery (principal); Z87.891 Personal history of nicotine dependence | CPT/HCPCS: 99213 ==

== ENCOUNTER → 2023-07-26 10:11 | Outpatient (BNVA) | payer OTHER, SELFPAY | PROVIDERS: PCP Family Medicine; Visit Provider Nurse Practitioner Family | DX: Z95.810 Presence of automatic (implantable) cardiac defibrillator (principal) | CPT/HCPCS: 99213 ==

== ENCOUNTER → 2023-08-12 10:17 | Outpatient (BNVA) | payer OTHER, SELFPAY | PROVIDERS: PCP Family Medicine; Visit Provider Podiatrist Foot & Ankle Surgery | DX: B35.1 Tinea unguium (principal); I73.9 Peripheral vascular disease, unspecified; G62.9 Polyneuropathy, unspecified; E11.42 Type 2 diabetes mellitus with diabetic polyneuropathy; Z79.4 Long term (current) use of insulin | CPT/HCPCS: 11721 ==

== ENCOUNTER → 2023-10-14 10:39 | Outpatient (BNVA) | payer OTHER, SELFPAY | PROVIDERS: PCP Family Medicine; Visit Provider Podiatrist Foot & Ankle Surgery | DX: B35.1 Tinea unguium (principal); I73.9 Peripheral vascular disease, unspecified; G62.9 Polyneuropathy, unspecified; E11.42 Type 2 diabetes mellitus with diabetic polyneuropathy; Z79.4 Long term (current) use of insulin | CPT/HCPCS: 11721 ==

== ENCOUNTER → 2023-11-04 14:15 | Outpatient (BNVA) | payer OTHER, SELFPAY | PROVIDERS: PCP Family Medicine; Visit Provider Internal Medicine | DX: I11.0 Hypertensive heart disease with heart failure (principal); I50.42 Chronic combined systolic (congestive) and diastolic (congestive) heart failure; I25.10 Atherosclerotic heart disease of native coronary artery without angina pectoris; Z95.810 Presence of automatic (implantable) cardiac defibrillator; E78.5 Hyperlipidemia, unspecified; E11.51 Type 2 diabetes mellitus with diabetic peripheral angiopathy without gangrene; Z87.891 Personal history of nicotine dependence; Z79.4 Long term (current) use of insulin | CPT/HCPCS: 99214 ==

== ENCOUNTER → 2023-12-17 11:24 | Outpatient (BNVA) | payer OTHER, SELFPAY | PROVIDERS: PCP Family Medicine; Visit Provider Podiatrist Foot & Ankle Surgery | DX: I73.9 Peripheral vascular disease, unspecified (principal); B35.1 Tinea unguium; E11.9 Type 2 diabetes mellitus without complications; G62.9 Polyneuropathy, unspecified; E11.42 Type 2 diabetes mellitus with diabetic polyneuropathy; Z79.4 Long term (current) use of insulin | CPT/HCPCS: 11721 ==

== ENCOUNTER 2024-02-04 13:24 | Outpatient (CLI) | payer OTHER, SELFPAY ==
--- NOTE | 2024-02-04 13:30 | USCV_ITS ---
Andre Olivas Age: 79 Gender: M : 1945 Exam Date: 02/04/2024 14:02 Ordering Phys: Kg Motta M.D ([email or web address]) Technologist: JASIEL [place] [facility] [place]: Risk Factors: Previous Vascular Surgery: Right Brachial BP: / Left Brachial BP: / Right Left Velocity (cm/s) Spectral Plaque Velocity (cm/s) Spectral Plaque Syst/Diast Broadening Syst/Diast Broadening 90.60/ 16.70 Prox CCA 104.00/ 20.90 86.70/ 15.40 Mid CCA 115.80/ 24.60 73.20/ 13.30 Distal CCA 109.50/ 37.30 59.60/ 9.10 Prox ICA 73.70 / 22.30 82.40/ 7.50 Mid ICA 90.80 / 30.80 75.30/ 22.00 PST Distal ICA 79.30 / 27.50 129.50 ECA 76.50 1.10 ICA/CCA 0.80 Antegrade Vertebral Antegrade 35.70/ 8.40 cm/s 44.30/ 13.50 cm/s Tri Subclavian Tri 72.20 100.8 0 CONCLUSIONS Right ICA stenosis <50%. Moderate atheromatous plaque right carotid bulb/ICA. Left ICA stenosis <50%. Moderate atheromatous plaque left carotid bulb/ICA. Normal antegrade Doppler flow noted in the right vertebral artery. Normal antegrade Doppler flow noted in the left vertebral artery. Osbaldo Basurto MD (Electronically Signed) Final Date: 04 February 2024 15:00 S
== END 2024-02-04 13:25 | disposition home or self-care (01) ==
LOC: RAD 13:25
PROVIDERS: PCP Family Medicine; Visit Provider Internal Medicine
DX: I65.23 Occlusion and stenosis of bilateral carotid arteries (principal)
CPT/HCPCS: 93880

== ENCOUNTER → 2024-02-18 13:18 | Outpatient (BNVA) | payer OTHER, SELFPAY | PROVIDERS: PCP Family Medicine; Visit Provider Podiatrist Foot & Ankle Surgery | DX: B35.1 Tinea unguium (principal); I73.9 Peripheral vascular disease, unspecified; G62.9 Polyneuropathy, unspecified; E11.42 Type 2 diabetes mellitus with diabetic polyneuropathy; Z79.4 Long term (current) use of insulin | CPT/HCPCS: 11721 ==

== ENCOUNTER → 2024-04-23 12:49 | Outpatient (BNVA) | payer OTHER, SELFPAY | PROVIDERS: PCP Family Medicine; Visit Provider Podiatrist Foot & Ankle Surgery | DX: E11.42 Type 2 diabetes mellitus with diabetic polyneuropathy (principal); B35.1 Tinea unguium; L84 Corns and callosities; I73.9 Peripheral vascular disease, unspecified; G62.9 Polyneuropathy, unspecified; Z79.4 Long term (current) use of insulin | CPT/HCPCS: 11056; 11721 ==

== ENCOUNTER → 2024-05-12 15:52 | Outpatient (BNVA) | payer OTHER, SELFPAY | PROVIDERS: PCP Family Medicine; Visit Provider Nurse Practitioner Family | DX: I11.0 Hypertensive heart disease with heart failure (principal); I50.42 Chronic combined systolic (congestive) and diastolic (congestive) heart failure; I25.10 Atherosclerotic heart disease of native coronary artery without angina pectoris; Z95.810 Presence of automatic (implantable) cardiac defibrillator; E78.5 Hyperlipidemia, unspecified; E11.9 Type 2 diabetes mellitus without complications; I73.9 Peripheral vascular disease, unspecified; I65.23 Occlusion and stenosis of bilateral carotid arteries; Z87.891 Personal history of nicotine dependence; Z79.4 Long term (current) use of insulin | CPT/HCPCS: 99214 ==

== ENCOUNTER → 2024-05-20 08:54 | Outpatient (BNVA) | payer OTHER, SELFPAY | PROVIDERS: PCP Family Medicine; Visit Provider Internal Medicine | DX: Z45.02 Encounter for adjustment and management of automatic implantable cardiac defibrillator (principal) | CPT/HCPCS: 93296 ==

== ENCOUNTER → 2024-06-25 14:15 | Outpatient (BNVA) | payer OTHER, SELFPAY | PROVIDERS: PCP Family Medicine; Visit Provider Podiatrist Foot & Ankle Surgery | DX: E11.42 Type 2 diabetes mellitus with diabetic polyneuropathy (principal); B35.1 Tinea unguium; L84 Corns and callosities; I73.9 Peripheral vascular disease, unspecified; G62.9 Polyneuropathy, unspecified; Z79.4 Long term (current) use of insulin | CPT/HCPCS: 11056; 11721 ==

== ENCOUNTER → 2024-08-26 13:37 | Outpatient (BNVA) | payer OTHER, SELFPAY | PROVIDERS: PCP Family Medicine; Visit Provider Podiatrist Foot & Ankle Surgery | DX: E11.42 Type 2 diabetes mellitus with diabetic polyneuropathy (principal); B35.1 Tinea unguium; I73.9 Peripheral vascular disease, unspecified; G62.9 Polyneuropathy, unspecified; Z79.4 Long term (current) use of insulin | CPT/HCPCS: 11721; 99213 ==

== ENCOUNTER → 2024-09-24 08:17 | Outpatient (BNVA) | payer OTHER, SELFPAY | PROVIDERS: PCP Family Medicine; Visit Provider Internal Medicine | DX: Z45.02 Encounter for adjustment and management of automatic implantable cardiac defibrillator (principal) | CPT/HCPCS: 93296 ==

== ENCOUNTER → 2024-11-11 13:14 | Outpatient (BNVA) | payer OTHER, SELFPAY | PROVIDERS: PCP Family Medicine; Visit Provider Internal Medicine | DX: I25.10 Atherosclerotic heart disease of native coronary artery without angina pectoris (principal); I11.0 Hypertensive heart disease with heart failure; I50.9 Heart failure, unspecified; E78.5 Hyperlipidemia, unspecified; E11.9 Type 2 diabetes mellitus without complications; Z79.4 Long term (current) use of insulin; Z79.85 Long-term (current) use of injectable non-insulin antidiabetic drugs; I73.9 Peripheral vascular disease, unspecified; Z98.890 Other specified postprocedural states; Z79.82 Long term (current) use of aspirin; Z95.810 Presence of automatic (implantable) cardiac defibrillator; Z87.891 Personal history of nicotine dependence | CPT/HCPCS: 99214 ==

== ENCOUNTER → 2024-11-12 15:06 | Outpatient (BNVA) | payer OTHER, SELFPAY | PROVIDERS: PCP Family Medicine; Visit Provider Podiatrist Foot & Ankle Surgery | DX: E11.42 Type 2 diabetes mellitus with diabetic polyneuropathy (principal); B35.1 Tinea unguium; I73.9 Peripheral vascular disease, unspecified; G62.9 Polyneuropathy, unspecified; Z79.4 Long term (current) use of insulin | CPT/HCPCS: 11721 ==

== ENCOUNTER → 2025-01-14 10:47 | Outpatient (BNVA) | payer OTHER, SELFPAY | PROVIDERS: PCP Family Medicine; Visit Provider Podiatrist Foot & Ankle Surgery | DX: E11.42 Type 2 diabetes mellitus with diabetic polyneuropathy (principal); B35.1 Tinea unguium; E11.8 Type 2 diabetes mellitus with unspecified complications; I73.9 Peripheral vascular disease, unspecified; G62.9 Polyneuropathy, unspecified; Z79.85 Long-term (current) use of injectable non-insulin antidiabetic drugs | CPT/HCPCS: 11721 ==